=== PATIENT | female | born 1975 | race Caucasian/White ===

== ENCOUNTER 2016-07-01 13:03 | Emergency (ER) | payer OTHER ==
[~2016-07-01] VITALS: Ht 162.6 cm; Wt 145.1 kg
[~2016-07-01 13:03] MED LIST: COLACE100 MG; FENOFIBRATE200 MG PO; HYDROXYZINE50 MG PO; IRON TABLETS325 MG PO; LASIX40 MG PO; NECON; NEORAL25 M1; PRE-NATAL1 TA1 PO; TRAZADONE HYDR100 MG PO; VISTARIL50 MG/ML PO; ZOLOFT100 M1 PO; ZOLOFT100 MG PO; ZOLOFT50 M1 PO
[2016-07-01 13:53] VITALS: BP 120/90
--- NOTE | 2016-07-01 15:35 | NUR ---
PT TO BED 7 AT THIS TIME
--- NOTE | 2016-07-01 15:41 | NUR ---
40/F TO ED WITH C/O HEADACHE AND SINUS PAIN X1 WEEK. PT STATES PAIN IS 10/10. IBUPROFEN IS NOT HELPING WITH PAIN. DENIES N/V/D. LUNGS CLEAR BILAT. HR EVEN AND REGULAR. AAOX4. VSS. NO SIGNS OF DISTRESS.
[2016-07-01] MEDS ORDERED: KETOROLAC 60 MG/2 ML VIAL IM ONE (17:00)
--- NOTE | 2016-07-01 17:01 | NUR ---
Patient appears to be resting comfortably in bed. Vital Signs within normal limits. Respirations even and unlabored.
[2016-07-01 20:15] VITALS: BP 135/65
--- NOTE | 2016-07-01 20:16 | NUR ---
Patient discharged with v/s stable. Written and verbal after care instructions given and explained. Patient alert, oriented and verbalized understanding of instructions. Ambulatory with steady gait. All questions addressed prior to discharge. ID band removed. Patient advised to follow up with PMD. Rx of DOXYCYCLINE 100MG BID, SUDAFED 12HRS 120MG BID, MOTRIN 800MG TID, NORCO 5MG-325MG Q4HRS PRN given. Patient educated on indication of medication including possible reaction and side effects. Opportunity to ask questions provided and answered.
[2016-12-01] MEDS ORDERED: NEURONTIN300 MG PO (13:12)
== END 2016-07-01 20:16 | disposition home or self-care (01) ==
LOC: MED 13:03
DX: J32.9 Chronic sinusitis, unspecified (principal); F32.9 Major depressive disorder, single episode, unspecified; Z88.0 Allergy status to penicillin; Z90.710 Acquired absence of both cervix and uterus; Z90.89 Acquired absence of other organs
CPT/HCPCS: 81002; 96372; 99283; J1885

== ENCOUNTER 2016-08-13 11:26 | Emergency (ER) | payer OTHER ==
[~2016-08-13] VITALS: Ht 162.6 cm; Wt 145.1 kg
[~2016-08-13 11:26] MED LIST changes: -COLACE100 MG; -FENOFIBRATE200 MG PO; -HYDROXYZINE50 MG PO; -IRON TABLETS325 MG PO; -LASIX40 MG PO; -NECON; -NEORAL25 M1; -PRE-NATAL1 TA1 PO; +SERT100T PO; -TRAZADONE HYDR100 MG PO; -VISTARIL50 MG/ML PO; -ZOLOFT100 M1 PO; -ZOLOFT100 MG PO; -ZOLOFT50 M1 PO; +[UNRECOGNIZED DRUG - CODE] PO
[2016-08-13 11:42] VITALS: BP 141/80
--- NOTE | 2016-08-13 11:42 | NUR ---
PT BIBA ON 5150 FOR SUICIDAL IDEATION AND SELF-INFLICTED LACERATIONS TO JUSTIN FOREARMS. HX DEPRESSION AND ANXIETY; DENIES N/V/D; SKIN IS PINK/WARM/DRY; AAOX4 WITH EVEN AND STEADY GAIT; LUNGS CLEAR BL; HR EVEN AND REGULAR; PT DENIES ANY FEVER, CP, SOB, OR COUGH AT THIS TIME; PATIENT STATES PAIN OF 0/10 AT THIS TIME; VSS; PATIENT POSITIONED FOR COMFORT; HOB ELEVATED; BEDRAILS UP X2; BED DOWN. ER MD MADE AWARE OF PT STATUS.
[2016-08-13 12:18] LABS: BASOPHILS # (AUTO) 0.1 K/uL (0.00-0.22); BASOPHILS % (AUTO) 1.4 % (0.0-2.0); EOSINOPHILS # (AUTO) 0.3 K/uL (0-0.4); HEMATOCRIT 40.2 % (36-48); HEMOGLOBIN 13.5 g/dL (12.0-16.0); LYMPHOCYTES # (AUTO) 1.9 K/uL (2.5-16.5); LYMPHOCYTES % (AUTO) 32.1 % (20.5-51.1); MEAN CORPUSCULAR HEMOGLOBIN 30 pg (27-31); MEAN CORPUSCULAR HGB CONC 34 g/dL (33-37); MEAN CORPUSCULAR VOLUME 90 fL (80-94); MONOCYTES # (AUTO) 0.4 K/uL (0.8-1.0); MONOCYTES % (AUTO) 6.2 % (1.7-9.3); NEUTROPHILS # (AUTO) 3.1 K/uL (1.8-7.7); NEUTROPHILS % (AUTO) 55.3 % (42.2-75.2); PLATELET COUNT (AUTO) 212 K/uL (140-450); RED BLOOD CELL COUNT(AUTO) 4.49 MIL/uL (4.20-5.40); RED CELL DISTRIBUTION WIDTH 12.5 % (11.6-13.7); WHITE BLOOD COUNT (AUTO) 5.8 K/uL (4.8-10.8)
--- NOTE | 2016-08-13 12:25 | NUR ---
FERNANDO PT AMBULATES TO THE RESTROOM FOR URINE SAMPLE ASSISSTED BY KAYLIE GONZALES
[2016-08-13 12:35] LABS: ANION GAP 11.4 (8-16); CALCIUM 8.9 mg/dL (8.5-10.1); CARBON DIOXIDE 27.5 mmol/L (21-32); CHLORIDE 107 mmol/L (98-107); CREATININE 0.7 mg/dL (0.6-1.3); GFR ARICAN-AMERICAN 117 mL/min (>90); GFR NON ARICAN-AMERICAN 97 mL/min (>90); GLUCOSE 90 mg/dL (74-106); POTASSIUM 3.9 mmol/L (3.5-5.1); SODIUM SERUM 142 mmol/L (136-145); UREA NITROGEN, BLOOD 9 mg/dL (7-18)
[2016-08-13 12:42] LABS: ALANINE AMINOTRANSFERASE 26 U/L (12-78); ALBUMIN 3.9 g/dL (3.4-5.0); ALCOHOL, BLOOD < 3 mg/dL (<3); ALKALINE PHOSPHATASE 57 U/L (46-116); ASPARTATE AMINOTRANSFERASE 24 U/L (15-37); CREATINE KINASE, TOTAL 70 U/L (26-192); TOTAL BILIRUBIN 0.4 mg/dL (0.0-1.0); TOTAL PROTEIN, SERUM 7.3 g/dL (6.4-8.2)
[2016-08-13 12:46] LABS: ACETAMINOPHEN < 0.5 ug/ml (10-30); SALICYLATE < 2.8 mg/dL (2.8-20.0)
[2016-08-13 12:51] LABS: BILIRUBIN,URINE NEGATIVE (NEGATIVE); BLOOD, URINE NEGATIVE (NEGATIVE); COLOR,URINE YELLOW (YELLOW); LEUKOCYTE ESTERASE ,URINE NEGATIVE (NEGATIVE); NITRITE, URINE NEGATIVE (NEGATIVE); PROTEIN,URINE NEGATIVE (NEGATIVE); UGLUCOSE NEGATIVE (NEGATIVE); UROBILINOGEN,URINE 0.2 EU/dL (0.2 - 1)
[2016-08-13 12:53] LABS: APPEARANCE,URINE CLEAR (CLEAR)
--- NOTE | 2016-08-13 12:54 | NUR ---
AAO COOPERATIVE PT REQUESTED DAUGHTER SULMA THAT SHE GET ALONG TO BE AT HER BEDSIDE. CHAIR PROVIDED, PT TALKING CALMLY WITH DAUGHTER, NO SIGNS OF HARMING SELF AT THIS TIME, WILL CONTINUE TO MONITOR
[2016-08-13 13:00] LABS: AMPHETAMINE, URINE NEG. ng/ml (NEG <=1000); BARBITURATE, URINE NEG. ng/ml (NEG <=200); BENZODIAZEPINE, URINE NEG. ng/mL (NEG <=200); CANNABINOID, URINE NEG. ng/mL (NEG <=50); COCAINE, URINE NEG. ng/mL (NEG <=300); OPIATE, URINE NEG. ng/mL (NEG <=2000); PHENCYCLIDINE SCREEN,URINE NEG. ng/mL (NEG <=25)
[2016-08-13 13:02] LABS: BACTERIA,URINE OCCASSIONAL /HPF (None Seen); RBC,URINE 0-5 (RARE) /HPF (0-5); WBC,URINE 0-5 (RARE) /HPF (0-5)
--- NOTE | 2016-08-13 14:59 | NUR ---
TALK TO RACHEL DEXTER INTAKE FOR POSSIBLE ADMIT, AAO COOPERATIVE TALKING SEASONAL GREENERY BUNDLER WELL, PT CALLING FAM[facility] FOR TAKING CARE OF HER 13 YEAR OLD DAUGHTER
[2016-08-13] MEDS ORDERED: ACETAMINOPHEN EXTRA STRENGTH 500 MG TAB PO ONE (15:00)
--- NOTE | 2016-08-13 15:33 | NUR ---
AAO PT STILL TRYING TO MAKE PHONE CALL TO ARRANGE FOR CUSTODY OF 13 YEAR OLD DAUGHTER, KAYLIE RAMÍREZ AT BEDSIDE
--- NOTE | 2016-08-13 16:00 | NUR ---
PER PT HER MOTHER SHIKHA STEVENS [id number] [place] [address] WILL TAKE CARE OF HER DAUGHTER ASTRID STEVENS AT THIS TIME
--- NOTE | 2016-08-13 16:08 | NUR ---
PER PATIENT,HER MOTHER WILL TAKE CARE OF HER 13 YR.OLD AT HOME.
[2016-08-13 16:26] VITALS: BP 121/71
--- NOTE | 2016-08-13 16:26 | NUR ---
Patient to be transferred to [facility]. Is being transferred due to NEED OF HIGHER LEVEL OF CARE. Receiving facility has accepting physician and available space. ER physician has signed transfer form. Patient or responsible green party has agreed to transfer and signed form. Patient belongings inventoried and sent with patient. Copy of nursing notes, lab reports, EKG, Physicians Orders and X-rays to be sent with patient. Report called to INTAKE NURSE at receiving facility. ambulance service TAKE THE PT VIA GURNEY BY PARAMEDICS
== END 2016-08-13 16:26 ==
LOC: MED 11:26
DX: S51.812A Laceration without foreign body of left forearm, initial encounter (principal); S51.811A Laceration without foreign body of right forearm, initial encounter; F32.9 Major depressive disorder, single episode, unspecified; Z88.0 Allergy status to penicillin; X78.1XXA Intentional self-harm by knife, initial encounter; Y93.89 Activity, other specified; Y92.89 Other specified places as the place of occurrence of the external cause; Y99.8 Other external cause status
CPT/HCPCS: 36415; 80053; 80305; 81001; 81025; 82550; 84484; 85025; 99285; G0480; G0482

== ENCOUNTER 2016-12-01 12:52 | Emergency (ER) | payer OTHER ==
[~2016-12-01] VITALS: Ht 162.6 cm; Wt 145.1 kg
[2016-12-01] MEDS ORDERED: NACL 0.9% 1,000 ML IV SCH (12:59)
[2016-12-01] MEDS ORDERED: ONDANSETRON 4 MG/2 ML VIAL IVP ONE (13:00)
[2016-12-01] MEDS ORDERED: FAMOTIDINE 20 MG/2 ML VIAL IVP ONE (13:00)
--- NOTE | 2016-12-01 13:00 | NUR ---
Patient BIBA BLS, transferred to bed 4. RN evaluating patient at bedside.
[2016-12-01] MEDS ORDERED: NACL 0.9% 1,000 ML IV ONE (13:03)
[2016-12-01] MEDS ORDERED: MULTIVITAMIN-12 10 ML, THIAMINE 100 MG, MAGNESIUM SULFATE 50% 2,000 MG, FOLIC ACID 5 MG... IV ONE ×5 (13:03)
[2016-12-01 13:06] VITALS: BP 135/77
--- NOTE | 2016-12-01 13:10 | NUR ---
PATIENT PRESENTS TO ED WITH PATIENT WOKE UP WITH SYMP. AFTER DRINKING 10 TALL CANS OF BEER LAST NIGHT. HX: HTN,DEPRESSION,HIGH CHOL.,PARTIAL HYSTERECTOMY . DENIES N/V/; SKIN IS PINK/WARM/DRY; AAOX4 WITH EVEN AND STEADY GAIT; LUNGS CLEAR BL; HR EVEN AND REGULAR; PT DENIES ANY FEVER, CP, SOB, OR COUGH AT THIS TIME; PATIENT STATES PAIN OF 5/10 AT THIS TIME; VSS; PATIENT POSITIONED FOR COMFORT; HOB ELEVATED; BEDRAILS UP X2; BED DOWN. ER MD MADE AWARE OF PT STATUS.
[2016-12-01] MEDS ORDERED: GABA300C PO (13:12)
[2016-12-01] MEDS ORDERED: MAGNESIUM SULFATE IV SCH ×6 (13:20→13:22)
[2016-12-01] MEDS ORDERED: THIAMINE IV SCH ×6 (13:20→13:22)
[2016-12-01] MEDS ORDERED: FOLIC ACID IV SCH ×6 (13:20→13:22)
[2016-12-01] MEDS ORDERED: NACL 0.9% IV SCH (13:20)
[2016-12-01 13:22] LABS: BASOPHILS # (AUTO) 0.3 K/uL (0.00-0.22); BASOPHILS % (AUTO) 3.9 % (0.0-2.0); EOSINOPHILS # (AUTO) 0.1 K/uL (0-0.4); EOSINOPHILS % (AUTO) 1.8 % (0.0-4.0); HEMATOCRIT 43.3 % (36-48); HEMOGLOBIN 14.4 g/dL (12.0-16.0); LYMPHOCYTES # (AUTO) 1.5 K/uL (2.5-16.5); LYMPHOCYTES % (AUTO) 18.8 % (20.5-51.1); MEAN CORPUSCULAR HEMOGLOBIN 30 pg (27-31); MEAN CORPUSCULAR HGB CONC 33 g/dL (33-37); MEAN CORPUSCULAR VOLUME 89 fL (80-94); MONOCYTES # (AUTO) 0.3 K/uL (0.8-1.0); MONOCYTES % (AUTO) 3.7 % (1.7-9.3); NEUTROPHILS # (AUTO) 5.8 K/uL (1.8-7.7); NEUTROPHILS % (AUTO) 71.8 % (42.2-75.2); PLATELET COUNT (AUTO) 193 K/uL (140-450); RED BLOOD CELL COUNT(AUTO) 4.85 MIL/uL (4.20-5.40); RED CELL DISTRIBUTION WIDTH 12.8 % (11.6-13.7)
[2016-12-01] MEDS ORDERED: [UNRECOGNIZED DRUG - OTHER] IV SCH ×5 (13:22)
[2016-12-01 13:45] LABS: ANION GAP 17.5 (8-16); CALCIUM 9.7 mg/dL (8.5-10.1); CARBON DIOXIDE 24.4 mmol/L (21-32); CREATININE 0.9 mg/dL (0.6-1.3); POTASSIUM 3.9 mmol/L (3.5-5.1)
[2016-12-01 13:46] LABS: PARTIAL THROMBOPLASTIN TIME 26.5 secs (22-35.6); PROTHROMBIN TIME 10.4 secs (10.8-13.4)
[2016-12-01 13:51] LABS: ALBUMIN 4.3 g/dL (3.4-5.0); TOTAL BILIRUBIN 0.6 mg/dL (0.0-1.0); TOTAL PROTEIN, SERUM 8.1 g/dL (6.4-8.2)
--- NOTE | 2016-12-01 14:44 | NUR ---
AAO PT ASSISTED TO THE RESTROOM FOR URINE SAMPLE
[2016-12-01 15:10] LABS: APPEARANCE,URINE CLEAR (CLEAR); BILIRUBIN,URINE NEGATIVE (NEGATIVE); BLOOD, URINE NEGATIVE (NEGATIVE); COLOR,URINE YELLOW (YELLOW); LEUKOCYTE ESTERASE ,URINE NEGATIVE (NEGATIVE); NITRITE, URINE NEGATIVE (NEGATIVE); PROTEIN,URINE NEGATIVE (NEGATIVE); UGLUCOSE NEGATIVE (NEGATIVE); UROBILINOGEN,URINE 0.2 EU/dL (0.2 - 1)
[2016-12-01 15:17] LABS: AMPHETAMINE, URINE NEG. ng/ml (NEG <=1000); BARBITURATE, URINE NEG. ng/ml (NEG <=200); BENZODIAZEPINE, URINE NEG. ng/mL (NEG <=200); CANNABINOID, URINE NEG. ng/mL (NEG <=50); COCAINE, URINE NEG. ng/mL (NEG <=300); OPIATE, URINE NEG. ng/mL (NEG <=2000); PHENCYCLIDINE SCREEN,URINE NEG. ng/mL (NEG <=25)
[2016-12-01] MEDS ORDERED: LIDOCAINE VISCOUS 2% 20 ML UDC PO ONE (15:35)
[2016-12-01] MEDS ORDERED: ALUMINUM HYD/MAG/SIMETHICONE 30 ML UDC PO ONE (15:35)
[2016-12-01] MEDS ORDERED: DICYCLOMINE HCL LIQUID 10 MG/5 ML UDC PO ONE (15:35)
[2016-12-01 16:03] VITALS: BP 118/76
--- NOTE | 2016-12-01 16:03 | NUR ---
Patient discharged with v/s stable. Written and verbal after care instructions given and explained. Patient alert, oriented and verbalized understanding of instructions. Ambulatory with steady gait. All questions addressed prior to discharge. ID band removed. Patient advised to follow up with PMD. Rx of BENTYL, RANITIDINE given. Patient educated on indication of medication including possible reaction and side effects. Opportunity to ask questions provided and answered.
== END 2016-12-01 16:03 | disposition home or self-care (01) ==
LOC: MED 12:52
DX: K29.20 Alcoholic gastritis without bleeding (principal); F10.10 Alcohol abuse, uncomplicated; F32.9 Major depressive disorder, single episode, unspecified; Z90.710 Acquired absence of both cervix and uterus; Z88.0 Allergy status to penicillin
CPT/HCPCS: 36415; 71010; 80053; 80305; 81003; 81025; 82150; 83690; 85025; 85610; 85730; 96365; 96366; 96375; 99285; A9153; G0482; J2405; J3411; J3475; J3490; J7030; Q0092

== ENCOUNTER 2017-06-11 13:09 | Emergency (ER) | payer OTHER ==
[~2017-06-11] VITALS: Ht 162.6 cm; Wt 146.1 kg
[~2017-06-11 13:09] MED LIST changes: +GABA300C PO; -[UNRECOGNIZED DRUG - CODE] PO
[2017-06-11 13:51] VITALS: BP 134/79
--- NOTE | 2017-06-11 14:53 | NUR ---
PATIENT TO BED 2 AT THIS TIME.
--- NOTE | 2017-06-11 15:11 | NUR ---
PATIENT PRESENTS TO ED WITH C/O CONGESTION AND COUGH X 1 WEEK . PT STATES SHE HAS CP. ALSO C/O SOB O2 SAT 0F 99% AT ROOM AIR;FEELS NAUSEOUS BUT DENIES VOMITTING; SKIN IS PINK/WARM/DRY; AAOX4 WITH EVEN AND STEADY GAIT; HR EVEN AND REGULAR; PATIENT STATES PAIN OF 7/10 AT THIS TIME;PATIENT POSITIONED FOR COMFORT; HOB ELEVATED; BEDRAILS UP X2; BED DOWN. ALL MONITORS IN PLACED;ER MD MADE AWARE OF PT STATUS.
[2017-06-11] MEDS ORDERED: IPRATROPIUM 0.02% 0.5 MG/2.5 ML NEBU INH ONE (15:30)
[2017-06-11] MEDS ORDERED: predniSONE 20 MG TAB PO ONE (15:30)
[2017-06-11] MEDS ORDERED: ALBUTEROL 0.083% 2.5 MG/3 ML NEBU INH ONE (15:30)
--- NOTE | 2017-06-11 16:17 | NUR ---
DR QUILES AT BEDSIDE.
[2017-06-11 16:30] VITALS: BP 132/96
--- NOTE | 2017-06-11 16:30 | NUR ---
Patient discharged with v/s stable. Written and verbal after care instructions given and explained. Patient alert, oriented and verbalized understanding of instructions. Ambulatory with steady gait. All questions addressed prior to discharge. ID band removed. Patient advised to follow up with PMD. Rx of ALBUTEROL,PREDNISONE AND PROMETHAZINE given. Patient educated on indication of medication including possible reaction and side effects. Opportunity to ask questions provided and answered.
== END 2017-06-11 16:30 | disposition home or self-care (01) ==
LOC: MED 13:09
DX: J20.9 Acute bronchitis, unspecified (principal); I10 Essential (primary) hypertension; Z90.89 Acquired absence of other organs; E78.00 Pure hypercholesterolemia, unspecified; Z88.0 Allergy status to penicillin
CPT/HCPCS: 71045; 94640; 99283; J7512; J7613; J7644

== ENCOUNTER 2017-10-25 10:19 | Emergency (ER) | payer OTHER ==
[~2017-10-25] VITALS: Ht 162.6 cm; Wt 145.1 kg
[2017-10-25 10:25] VITALS: BP 123/81
--- NOTE | 2017-10-25 10:32 | NUR ---
Patient ambulated to bed 9. RN evaluating patient at bedside.
--- NOTE | 2017-10-25 10:40 | NUR ---
42 yo female bib self for abdominal pain and vaginal itching x 4 days and suprapubic pain. pt a&o x 4. gcs 15. cms intact. denies n/v/d/fever/chills. er md polk notified. pt needs met. safety precautions in place. will continue to monitor.
[2017-10-25] MEDS ORDERED: HYDROcodone/APAP 5/325 MG 1 TAB TAB PO ONE (10:45)
--- NOTE | 2017-10-25 13:01 | NUR ---
Dr. Burdick evaluating patient at bedside.
[2017-10-25 13:11] VITALS: BP 119/78
--- NOTE | 2017-10-25 13:11 | NUR ---
Patient discharged with v/s stable. Written and verbal after care instructions given and explained. Patient alert, oriented and verbalized understanding of instructions. Ambulatory with steady gait. All questions addressed prior to discharge. ID band removed. Patient advised to follow up with PMD. Rx of Flucanazole, [place], Benadryl, Ciprofloxacin given. Patient educated on indication of medication including possible reaction and side effects. Opportunity to ask questions provided and answered.
[2017-10-25 13:14] LABS: APPEARANCE,URINE TURBID (CLEAR); BILIRUBIN,URINE NEGATIVE (NEGATIVE); BLOOD, URINE 3+ (NEGATIVE); COLOR,URINE YELLOW (YELLOW); LEUKOCYTE ESTERASE ,URINE 2+ (NEGATIVE); NITRITE, URINE POSITIVE (NEGATIVE); PH,URINE 6.5 (5.0-9.0); UGLUCOSE NEGATIVE (NEGATIVE)
[2017-10-25 13:27] LABS: RBC,URINE 11-20 (MOD) /HPF (0-5); WBC,URINE TOO MANY TO COUNT /HPF (0-5)
--- NOTE | 2017-10-27 18:57 | NUR ---
ADDENDUM: URINE CULTURE RESULTS, E.COLI. REVIEWED BY DR. MCDANIEL. NO FARTHER TX. NEEDED. PATIENT DISCHARGED WITH CIPRO.
== END 2017-10-25 13:11 | disposition home or self-care (01) ==
LOC: MED 10:19
DX: N39.0 Urinary tract infection, site not specified (principal); I10 Essential (primary) hypertension; F32.9 Major depressive disorder, single episode, unspecified; E78.00 Pure hypercholesterolemia, unspecified; Z79.899 Other long term (current) drug therapy; Z88.0 Allergy status to penicillin
CPT/HCPCS: 81001; 81025; 87086; 87186; 99284

== ENCOUNTER 2017-11-15 10:38 | Emergency (ER) | payer OTHER ==
[~2017-11-15] VITALS: Ht 165.1 cm; Wt 149.7 kg
[2017-11-15 10:40] VITALS: BP 131/92
--- NOTE | 2017-11-15 10:44 | NUR ---
PATIENT TO ER BED 2 VIA EMS
--- NOTE | 2017-11-15 10:50 | NUR ---
PATIENT BHUPINDER WITH COMPLAINTS OF LOWER ABDOMINAL PAIN RADIATING TO LOWER BACK X 1 MONTH. [facility] INFORMED PATIENT HAS A HX OF UTI AND PATIENT BELIEVES IT MAY BE RECURRING. PATIENT ASKED TO PROVIDE URINE SAMPLE. ASSISTED TO BATHROOM, GAIT UNSTEADY. SKIN IS PINK/WARM/DRY; AAOX4; LUNGS CLEAR BL; HR EVEN AND REGULAR; PT DENIES ANY FEVER, CP, SOB, OR COUGH AT THIS TIME; PATIENT STATES PAIN OF 10/10 AT THIS TIME; VSS; PATIENT POSITIONED FOR COMFORT; HOB ELEVATED; BEDRAILS UP X1; BED DOWN. ER MD MADE AWARE OF PT STATUS. Addendum: 11/15/17 at 1509 by LUVHAN PATIENT ALSO NOTED TO HAVE SEVERAL CUTS OVER HER LEFT WRIST AND FOREARM. PATIENT STATES SHE DOES NOT REMEBER HOW THEY HAPPENED. ED MADE AWARE.
--- NOTE | 2017-11-15 11:01 | NUR ---
UNABLE TO PROVIDE URINE SAMPLE. DR. DORAN VERBAL ORDER STRAIGHT CATH.
--- NOTE | 2017-11-15 11:50 | NUR ---
Patient discharged with v/s stable. Written and verbal after care instructions given and explained. Patient verbalized understanding. Ambulatory with steady gait. All questions addressed prior to discharge. Advised to follow up with PMD.
[2017-11-15 11:53] VITALS: BP 131/92
--- NOTE | 2017-11-15 15:11 | NUR ---
PATIENT DAUGHTER BACK WITH PATIENT. WANTS MOTHER REEVALUATED FOR POSSIBLE MEDICATION REACTION. ED MD NOTIFIED.
== END 2017-11-15 11:50 | disposition home or self-care (01) ==
LOC: MED 10:38
DX: R33.9 Retention of urine, unspecified (principal); I10 Essential (primary) hypertension; Z88.0 Allergy status to penicillin; Z79.899 Other long term (current) drug therapy
CPT/HCPCS: 51701; 81002; 81025; 99284; C1758

== ENCOUNTER 2017-11-15 12:06 | Emergency (ER) | payer OTHER ==
--- NOTE | 2017-11-15 12:15 | NUR ---
PATIENT LWBS.ERMD AWARE
== END 2017-11-15 12:15 | disposition left against medical advice (07) ==
LOC: MED 12:06
DX: R42 Dizziness and giddiness (principal); I10 Essential (primary) hypertension; Z53.21 Procedure and treatment not carried out due to patient leaving prior to being seen by health care provider; Z88.0 Allergy status to penicillin

== ENCOUNTER 2018-05-31 15:33 | Emergency (ER) | payer OTHER ==
[~2018-05-31] VITALS: Ht 162.6 cm; Wt 144.2 kg
[2018-05-31 16:10] VITALS: BP 129/98
--- NOTE | 2018-05-31 16:15 | NUR ---
PATIENT TO LOBBY WITH FAMILY. NO AVAIL. BED AT THIS TIME. NO DISTRESS
--- NOTE | 2018-05-31 17:13 | NUR ---
PT RETURNED FROM US AND TAKEN TO BED 6
--- NOTE | 2018-05-31 17:19 | NUR ---
Patient being evaluated by physician at bedside.
--- NOTE | 2018-05-31 17:30 | NUR ---
PER PATIENT, FELT 2 BUMPS INSIDE HER VAGINA X 2 DAYS AND THIS MORNING STARTS BLEEDING.PATIENT STATES PAIN OF 10/10 AT THIS TIME; VSS; PATIENT POSITIONED FOR COMFORT; HOB ELEVATED; BEDRAILS UP X2; BED DOWN. ER MD MADE AWARE OF PT STATUS.
[2018-05-31 18:11] VITALS: BP 129/98
--- NOTE | 2018-05-31 18:12 | NUR ---
Patient discharged with v/s stable. Written and verbal after care instructions given and explained. Patient alert, oriented and verbalized understanding of instructions. Ambulatory with steady gait. All questions addressed prior to discharge. ID band removed. Patient advised to follow up with PMD. Rx of hydrocortisone, motrin, tramadol given. Patient educated on indication of medication including possible reaction and side effects. Opportunity to ask questions provided and answered.
== END 2018-05-31 18:12 | disposition home or self-care (01) ==
LOC: MED 15:33
DX: N89.8 Other specified noninflammatory disorders of vagina (principal); R31.9 Hematuria, unspecified; I10 Essential (primary) hypertension; Z90.710 Acquired absence of both cervix and uterus; Z79.899 Other long term (current) drug therapy; Z88.0 Allergy status to penicillin
CPT/HCPCS: 76856; 99284

== ENCOUNTER 2018-08-22 12:21 | Emergency (ER) | payer OTHER ==
[~2018-08-22] VITALS: Ht 162.6 cm; Wt 145.1 kg
[2018-08-22 12:27] VITALS: BP 151/98
--- NOTE | 2018-08-22 15:05 | NUR ---
1505---1ST CALL, PATIENT LEFT WITHOUT BEING SEEN BY DR. POWERS. NO FURTHER CARE PROVIDED FOR PATIENT. 1510---2ND CALL, NO ANSWER 1520---3RD CALL, NO ANSWER.
== END 2018-08-22 15:05 | disposition left against medical advice (07) ==
LOC: MED 12:21
DX: J34.89 Other specified disorders of nose and nasal sinuses (principal); Z53.21 Procedure and treatment not carried out due to patient leaving prior to being seen by health care provider

== ENCOUNTER 2019-01-03 19:07 | Emergency (ER) | payer OTHER ==
[~2019-01-03] VITALS: Ht 162.6 cm; Wt 145.1 kg
[2019-01-03 19:16] VITALS: BP 110/82
[2019-01-03] MEDS: KETOROLAC 60 MG/2 ML VIAL IM ONE (20:50)
[2019-01-03 21:23] LABS: APPEARANCE,URINE HAZY (CLEAR); BILIRUBIN,URINE 1+ (NEGATIVE); BLOOD, URINE NEGATIVE (NEGATIVE); COLOR,URINE YELLOW (YELLOW); LEUKOCYTE ESTERASE ,URINE TRACE (NEGATIVE); NITRITE, URINE NEGATIVE (NEGATIVE); UGLUCOSE NEGATIVE (NEGATIVE)
[2019-01-03 21:34] LABS: RBC,URINE 0-5 /HPF (0-5); WBC,URINE 0-5 /HPF (0-5)
[2019-01-03 23:16] VITALS: BP 118/74
== END 2019-01-03 23:16 | disposition home or self-care (01) ==
LOC: MED 19:07
DX: N83.201 Unspecified ovarian cyst, right side (principal); I10 Essential (primary) hypertension; Z79.899 Other long term (current) drug therapy
CPT/HCPCS: 76856; 81001; 81025; 96372; 99284; J1885; Q0092

== ENCOUNTER 2019-01-15 18:54 | Emergency (ER) | payer OTHER ==
[~2019-01-15] VITALS: Ht 162.6 cm; Wt 149.2 kg
[2019-01-15 19:23] VITALS: BP 120/90
--- NOTE | 2019-01-15 19:27 | NUR ---
TO LOBBY A/W BED AMBULATORY
[2019-01-15 19:47] LABS: APPEARANCE,URINE CLEAR (CLEAR); BILIRUBIN,URINE NEGATIVE (NEGATIVE); BLOOD, URINE NEGATIVE (NEGATIVE); COLOR,URINE YELLOW (YELLOW); LEUKOCYTE ESTERASE ,URINE NEGATIVE (NEGATIVE); NITRITE, URINE NEGATIVE (NEGATIVE); UGLUCOSE NEGATIVE (NEGATIVE)
--- NOTE | 2019-01-15 23:36 | NUR ---
PT AMBULATED TO BED 02 WITH STEADY GAIT.
[2019-01-16] MEDS ORDERED: ONDANSETRON 4 MG ODT PO ONE (00:05)
[2019-01-16] MEDS ORDERED: MORPHINE SULFATE 4 MG/ML SYR IM ONE (00:05)
[2019-01-16] MEDS ORDERED: KETOROLAC 30 MG/ML VIAL IM ONE (00:05)
[2019-01-16 00:35] LABS: BASOPHILS % (AUTO) 0.3 % (0.0-2.0); EOSINOPHILS # (AUTO) 0.4 K/uL (0-0.4); EOSINOPHILS % (AUTO) 5.8 % (0.0-4.0); HEMATOCRIT 41.7 % (36-48); HEMOGLOBIN 13.8 g/dL (12.0-16.0); LYMPHOCYTES # (AUTO) 2.8 K/uL (2.5-16.5); LYMPHOCYTES % (AUTO) 45.4 % (20.5-51.1); MEAN CORPUSCULAR HEMOGLOBIN 30 pg (27-31); MEAN CORPUSCULAR HGB CONC 33 g/dL (33-37); MEAN CORPUSCULAR VOLUME 91.9 fL (80-94); MONOCYTES # (AUTO) 0.4 K/uL (0.8-1.0); MONOCYTES % (AUTO) 6.7 % (1.7-9.3); NEUTROPHILS # (AUTO) 2.6 K/uL (1.8-7.7); NEUTROPHILS % (AUTO) 41.8 % (42.2-75.2); PLATELET COUNT (AUTO) 201 K/uL (140-450); RED BLOOD CELL COUNT(AUTO) 4.54 MIL/uL (4.20-5.40); RED CELL DISTRIBUTION WIDTH 13.7 % (11.6-13.7); WHITE BLOOD COUNT (AUTO) 6.1 K/uL (4.8-10.8)
[2019-01-16 01:00] LABS: ANION GAP 16.4 (8-16); CARBON DIOXIDE 20.3 mmol/L (21-32); CREATININE 0.8 mg/dL (0.6-1.3); POTASSIUM 3.7 mmol/L (3.5-5.1)
[2019-01-16 01:05] LABS: ALBUMIN 4.4 g/dL (3.4-5.0); TOTAL BILIRUBIN 0.6 mg/dL (0.0-1.0)
--- NOTE | 2019-01-16 02:01 | NUR ---
43 Y/O FEMALE C/O VAGINAL THROBBING PAIN, PAINFUL URINATION, FOUL SMELL ON URINE, FOR 2 WEEKS. PMH: ARTHRITIS, DEPRESSION, ANXIETY, AND HIGH CHOLESTEROL NKDA
[2019-01-16] MEDS ORDERED: cefTRIAXone 1,000 MG in LIDOCAINE MPF 1% - 5 mL VIAL 2.1 ML IM ONE (02:10)
--- NOTE | 2019-01-16 03:12 | NUR ---
Patient discharged with v/s stable. Written and verbal after care instructions given and explained. Patient alert, oriented and verbalized understanding of instructions. Ambulatory with steady gait. All questions addressed prior to discharge. ID band removed. Patient advised to follow up with PMD. Rx of KEFLEX 500MG given. Patient educated on indication of medication including possible reaction and side effects. Opportunity to ask questions provided and answered.
[2019-01-16 03:13] VITALS: BP 120/90
== END 2019-01-16 03:11 | disposition home or self-care (01) ==
LOC: MED 18:54
DX: R10.9 Unspecified abdominal pain (principal); I10 Essential (primary) hypertension; Z79.899 Other long term (current) drug therapy
CPT/HCPCS: 36415; 74176; 80053; 81003; 85025; 96372; 99284; J0696; J1885; J2001; J2270; Q0162

== ENCOUNTER 2019-04-14 12:58 | Emergency (ER) | payer OTHER ==
[~2019-04-14] VITALS: Ht 162.6 cm; Wt 149.7 kg
[2019-04-14 13:13] VITALS: BP 160/107
[2019-04-14 14:39] LABS: BASOPHILS % (AUTO) 0.1 % (0.0-2.0); EOSINOPHILS # (AUTO) 0.4 K/uL (0-0.4); EOSINOPHILS % (AUTO) 6.2 % (0.0-4.0); HEMATOCRIT 40.7 % (36-48); HEMOGLOBIN 13.5 g/dL (12.0-16.0); LYMPHOCYTES # (AUTO) 1.8 K/uL (2.5-16.5); LYMPHOCYTES % (AUTO) 31.2 % (20.5-51.1); MEAN CORPUSCULAR HEMOGLOBIN 31 pg (27-31); MEAN CORPUSCULAR HGB CONC 33 g/dL (33-37); MEAN CORPUSCULAR VOLUME 92.9 fL (80-94); MONOCYTES # (AUTO) 0.5 K/uL (0.8-1.0); NEUTROPHILS # (AUTO) 3.1 K/uL (1.8-7.7); NEUTROPHILS % (AUTO) 53.5 % (42.2-75.2); PLATELET COUNT (AUTO) 204 K/uL (140-450); RED BLOOD CELL COUNT(AUTO) 4.38 MIL/uL (4.20-5.40); RED CELL DISTRIBUTION WIDTH 13.6 % (11.6-13.7); WHITE BLOOD COUNT (AUTO) 5.7 K/uL (4.8-10.8)
[2019-04-14] MEDS: ONDANSETRON 4 MG/2 ML VIAL IVP ONE (14:46)
[2019-04-14] MEDS: NACL 0.9% 1,000 ML IV ONE (14:46)
[2019-04-14 14:49] LABS: CARBON DIOXIDE 23.1 mmol/L (21-32); CREATININE 0.9 mg/dL (0.6-1.3); POTASSIUM 4.1 mmol/L (3.5-5.1)
[2019-04-14 14:55] LABS: ALBUMIN 3.9 g/dL (3.4-5.0); TOTAL BILIRUBIN 0.5 mg/dL (0.0-1.0)
[2019-04-14 15:08] LABS: APPEARANCE,URINE CLEAR (CLEAR); BILIRUBIN,URINE NEGATIVE (NEGATIVE); BLOOD, URINE NEGATIVE (NEGATIVE); LEUKOCYTE ESTERASE ,URINE NEGATIVE (NEGATIVE); NITRITE, URINE NEGATIVE (NEGATIVE); UGLUCOSE NEGATIVE (NEGATIVE)
[2019-04-14 15:09] LABS: COLOR,URINE STRAW (YELLOW)
[2019-04-14 15:13] LABS: ACETAMINOPHEN < 0.5 ug/ml (10-30); SALICYLATE < 2.8 mg/dL (2.8-20.0)
[2019-04-14 15:13] LABS: BARBITURATE, URINE NEG. ng/ml (NEG <=200); BENZODIAZEPINE, URINE NEG. ng/mL (NEG <=200); CANNABINOID, URINE NEG. ng/mL (NEG <=50); COCAINE, URINE NEG. ng/mL (NEG <=300); OPIATE, URINE NEG. ng/mL (NEG <=2000); PHENCYCLIDINE SCREEN,URINE NEG. ng/mL (NEG <=25)
[2019-04-14] MEDS: KETOROLAC 30 MG/ML VIAL IVP ONE (15:56)
[2019-04-14 16:02] VITALS: BP 119/72
== END 2019-04-14 16:02 | disposition home or self-care (01) ==
LOC: MED 12:58
DX: F41.9 Anxiety disorder, unspecified (principal); I10 Essential (primary) hypertension; R42 Dizziness and giddiness; F32.9 Major depressive disorder, single episode, unspecified; Z98.890 Other specified postprocedural states; Z79.899 Other long term (current) drug therapy
CPT/HCPCS: 36415; 71045; 80053; 80305; 81003; 82150; 83690; 85025; 93005; 96361; 96372; 96374; 99284; G0480; J1885; J2405; J7030; Q0092

== ENCOUNTER 2023-06-20 09:28 | Emergency (ER) | payer MEDICARE, OTHER ==
[~2023-06-20] VITALS: Ht 165.1 cm; Wt 157.4 kg
[2023-06-20 09:44] VITALS: BP 100/66; PULSE 77; RESP 18; TEMP 97.1; O2SAT 98
[2023-06-20 09:57] VITALS: BP 105/50; PULSE 76; RESP 17; TEMP 97.1; O2SAT 99
[2023-06-20] MEDS ORDERED: NACL 0.9% 1,000 ML IV ONE (10:15)
[2023-06-20] MEDS ORDERED: BEN10 PO (10:26)
== END 2023-06-20 11:54 | disposition home or self-care (01) ==
LOC: MED 09:28
DX: K58.0 Irritable bowel syndrome with diarrhea (principal); I10 Essential (primary) hypertension; Z79.899 Other long term (current) drug therapy
CPT/HCPCS: 96360; 99283; J7030

== ENCOUNTER 2023-06-22 22:53 | Observation (INO) | payer MEDICARE, OTHER ==
[~2023-06-22] VITALS: Ht 157.5 cm; Wt 161.0 kg
[~2023-06-22 22:53] MED LIST changes: +BEN10 PO
[2023-06-22 23:09] VITALS: BP 135/91; PULSE 89; RESP 18; TEMP 97.4; O2SAT 98
[2023-06-23 00:58] LABS: BASOPHILS % (AUTO) 0.3 % (0.0-2.0); EOSINOPHILS # (AUTO) 0.2 K/uL (0-0.4); EOSINOPHILS % (AUTO) 4.4 % (0.0-4.0); HEMOGLOBIN 13.2 g/dL (12.0-16.0); LYMPHOCYTES # (AUTO) 2.4 K/uL (2.5-16.5); LYMPHOCYTES % (AUTO) 42.9 % (20.5-51.1); MEAN CORPUSCULAR HEMOGLOBIN 31 pg (27-31); MEAN CORPUSCULAR HGB CONC 33 g/dL (33-37); MEAN CORPUSCULAR VOLUME 92.8 fL (80-94); MONOCYTES # (AUTO) 0.5 K/uL (0.8-1.0); MONOCYTES % (AUTO) 8.5 % (1.7-9.3); NEUTROPHILS # (AUTO) 2.4 K/uL (1.8-7.7); NEUTROPHILS % (AUTO) 43.9 % (42.2-75.2); PLATELET COUNT (AUTO) 193 K/uL (140-450); RED BLOOD CELL COUNT(AUTO) 4.32 MIL/uL (4.20-5.40); RED CELL DISTRIBUTION WIDTH 13.2 % (11.6-13.7); WHITE BLOOD COUNT (AUTO) 5.5 K/uL (4.8-10.8)
[2023-06-23 01:04] LABS: APPEARANCE,URINE CLEAR (CLEAR); BILIRUBIN,URINE NEGATIVE (NEGATIVE); BLOOD, URINE NEGATIVE (NEGATIVE); COLOR,URINE YELLOW (YELLOW); LEUKOCYTE ESTERASE ,URINE NEGATIVE (NEGATIVE); NITRITE, URINE NEGATIVE (NEGATIVE); PH,URINE 6.5 (5.0-9.0); PROTEIN,URINE NEGATIVE (NEGATIVE); UGLUCOSE 2+ (NEGATIVE); UROBILINOGEN,URINE 0.2 EU/dL (0.2 - 1)
[2023-06-23 01:15] LABS: ANION GAP 12.2 (8-16); CALCIUM 9.1 mg/dL (8.5-10.1); CARBON DIOXIDE 28.4 mmol/L (21-32); POTASSIUM 3.6 mmol/L (3.5-5.1)
[2023-06-23 01:20] LABS: ALBUMIN 3.3 g/dL (3.4-5.0); BILIRUBIN,DIRECT 0.1 mg/dL (0.0-0.3); TOTAL BILIRUBIN 0.2 mg/dL (0.0-1.0); TOTAL PROTEIN, SERUM 7.9 g/dL (6.4-8.2)
[2023-06-23 01:47] LABS: LACTIC ACID 4.1 mmol/L (0.4-2.0)
[2023-06-23] MEDS: NACL 0.9% 1,000 ML IV ONE ×2 (01:50→22:37)
[2023-06-23] MEDS: metroNIDAZOLE 500 MG/NS PREMIX 100 ML IV ONE (01:57)
[2023-06-23] MEDS: NACL 0.9% 2,000 ML IV ONE ×2 (02:21→03:33)
[2023-06-23] MEDS: ACETAMINOPHEN EXTRA STRENGTH 500 MG TAB PO ONE (02:44)
[2023-06-23] MEDS ORDERED: KCL 20 MEQ IN 100 mL PREMIX 200 ML IV PRN (06:35)
[2023-06-23] MEDS ORDERED: MAGNESIUM OXIDE 400 MG TAB PO PRN (06:35)
[2023-06-23] MEDS ORDERED: ACETAMINOPHEN 325 MG TAB PO PRN (06:35)
[2023-06-23] MEDS ORDERED: MAG SULF 2000 MG/WATER PREMIX 50 ML IV PRN (06:35)
[2023-06-23] MEDS ORDERED: POTASSIUM CHLORIDE 10 MEQ TABER PO PRN (06:35)
[2023-06-23] MEDS: NACL 0.9% 1,000 ML IV SCH (07:32)
[2023-06-23] MEDS: SERTRALINE 50 MG TAB PO SCH (09:06)
[2023-06-23] MEDS: DICYCLOMINE 10 MG CAP PO SCH (09:06)
[2023-06-23] MEDS: GABAPENTIN 300 MG CAP PO SCH (09:06)
[2023-06-23] MEDS: MORPHINE SULFATE 4 MG/ML SYR IVP PRN (10:22)
[2023-06-23] MEDS: ONDANSETRON 4 MG/2 ML VIAL IVP PRN (10:23)
[2023-06-23] MEDS: PANTOPRAZOLE 40 MG TABEC PO SCH (11:06)
[2023-06-23 17:01] VITALS: PULSE 73; RESP 18; O2SAT 98
[2023-06-23 17:13] VITALS: BP 107/50; PULSE 73; RESP 18; TEMP 96.8; O2SAT 97
[2023-06-23 20:00] VITALS: BP 73/37; PULSE 73; RESP 18; TEMP 97.8; O2SAT 95
[2023-06-23] MEDS: MIDODRINE 5 MG TAB PO ONE (22:35)
[2023-06-24] VITALS: BP 118/75; PULSE 66; PULSE 69; RESP 18; TEMP 97.6; O2SAT 96
[2023-06-24 04:00] VITALS: BP 101/64; PULSE 67; PULSE 78; RESP 18; TEMP 97.5; O2SAT 94
[2023-06-24 06:47] LABS: BASOPHILS % (AUTO) 0.2 % (0.0-2.0); EOSINOPHILS # (AUTO) 0.2 K/uL (0-0.4); EOSINOPHILS % (AUTO) 5.1 % (0.0-4.0); HEMATOCRIT 37.1 % (36-48); HEMOGLOBIN 12.4 g/dL (12.0-16.0); LYMPHOCYTES # (AUTO) 1.6 K/uL (2.5-16.5); LYMPHOCYTES % (AUTO) 33.4 % (20.5-51.1); MEAN CORPUSCULAR HEMOGLOBIN 31 pg (27-31); MEAN CORPUSCULAR HGB CONC 33 g/dL (33-37); MEAN CORPUSCULAR VOLUME 92.6 fL (80-94); MONOCYTES # (AUTO) 0.4 K/uL (0.8-1.0); MONOCYTES % (AUTO) 7.4 % (1.7-9.3); NEUTROPHILS # (AUTO) 2.6 K/uL (1.8-7.7); NEUTROPHILS % (AUTO) 53.9 % (42.2-75.2); PLATELET COUNT (AUTO) 176 K/uL (140-450); RED BLOOD CELL COUNT(AUTO) 4.01 MIL/uL (4.20-5.40); RED CELL DISTRIBUTION WIDTH 13.5 % (11.6-13.7); WHITE BLOOD COUNT (AUTO) 4.8 K/uL (4.8-10.8)
[2023-06-24 07:18] LABS: ALBUMIN 2.8 g/dL (3.4-5.0); ANION GAP 11.7 (8-16); CALCIUM 8.4 mg/dL (8.5-10.1); CARBON DIOXIDE 25.1 mmol/L (21-32); CREATININE 0.9 mg/dL (0.6-1.3); MAGNESIUM 1.8 mg/dL (1.8-2.4); POTASSIUM 3.8 mmol/L (3.5-5.1); TOTAL BILIRUBIN 0.2 mg/dL (0.0-1.0); TOTAL PROTEIN, SERUM 6.6 g/dL (6.4-8.2)
[2023-06-24 08:00] VITALS: BP 106/52; PULSE 68; PULSE 78; RESP 18; TEMP 97.6; O2SAT 96
[2023-06-24] MEDS ORDERED: PANTOPRAZOLE 40 MG TABEC PO SCH (09:00)
[2023-06-24] MEDS: MIDODRINE 5 MG TAB PO SCH (09:31)
[2023-06-24] MEDS: LACTOBACILLUS RHAMNOSUS GG 1 EACH CAP PO SCH (11:48)
[2023-06-24] MEDS: HYDROcodone/APAP 5/325 MG 1 TAB TAB PO PRN (11:55)
[2023-06-24 16:00] VITALS: BP 122/69; PULSE 78; RESP 18; TEMP 97.6; O2SAT 95
[2023-06-24] MEDS: MORPHINE SULFATE 2 MG/ML SYR IVP PRN (18:08)
[2023-06-24 20:00] VITALS: BP 148/91; PULSE 60; RESP 18; TEMP 97.4; O2SAT 94
[2023-06-25 04:00] VITALS: BP 148/83; PULSE 80; RESP 18; TEMP 97.4; O2SAT 95
[2023-06-25 07:17] LABS: BASOPHILS % (AUTO) 0.2 % (0.0-2.0); EOSINOPHILS # (AUTO) 0.2 K/uL (0-0.4); EOSINOPHILS % (AUTO) 3.5 % (0.0-4.0); HEMATOCRIT 37.6 % (36-48); HEMOGLOBIN 12.6 g/dL (12.0-16.0); LYMPHOCYTES # (AUTO) 1.9 K/uL (2.5-16.5); LYMPHOCYTES % (AUTO) 30.1 % (20.5-51.1); MEAN CORPUSCULAR HEMOGLOBIN 31 pg (27-31); MEAN CORPUSCULAR HGB CONC 33 g/dL (33-37); MEAN CORPUSCULAR VOLUME 92.7 fL (80-94); MONOCYTES # (AUTO) 0.4 K/uL (0.8-1.0); MONOCYTES % (AUTO) 6.5 % (1.7-9.3); NEUTROPHILS # (AUTO) 3.7 K/uL (1.8-7.7); NEUTROPHILS % (AUTO) 59.7 % (42.2-75.2); PLATELET COUNT (AUTO) 192 K/uL (140-450); RED BLOOD CELL COUNT(AUTO) 4.05 MIL/uL (4.20-5.40); WHITE BLOOD COUNT (AUTO) 6.3 K/uL (4.8-10.8)
[2023-06-25 07:21] LABS: ALBUMIN 2.9 g/dL (3.4-5.0); ANION GAP 10.6 (8-16); CALCIUM 8.7 mg/dL (8.5-10.1); CARBON DIOXIDE 25.4 mmol/L (21-32); MAGNESIUM 1.8 mg/dL (1.8-2.4); TOTAL BILIRUBIN 0.2 mg/dL (0.0-1.0)
[2023-06-25 08:40] VITALS: BP 128/68; PULSE 73; RESP 18; TEMP 97.2; O2SAT 99
[2023-06-25] MEDS ORDERED: LACTOBACILLUS RHAMNOSUS GG 1 EACH CAP PO SCH (09:00)
[2023-06-25 13:29] VITALS: BP 122/75; PULSE 82; RESP 18; TEMP 97.2; O2SAT 99
[2023-06-25 14:18] VITALS: O2SAT 97
[2023-06-25 14:42] VITALS: BP 122/75; PULSE 84; RESP 18; TEMP 97.5
[2023-06-25] MEDS ORDERED: PANT40EC56 PO (15:17)
[2023-06-25] MEDS ORDERED: ACET-9525 PO (15:17)
[2023-06-25] MEDS ORDERED: LOPE2TAB52 PO (15:17)
[2023-06-25] MEDS ORDERED: LACT10CA PO (15:17)
== END 2023-06-25 15:50 | disposition home or self-care (01) ==
LOC: MED 22:53 → MMU 06-23 06:37 → MTU 06-23 16:40
PROVIDERS: ADMIT Internal Medicine; ATTEND Internal Medicine
DX: K52.9 Noninfective gastroenteritis and colitis, unspecified (principal); E87.20 Acidosis, unspecified; I10 Essential (primary) hypertension; E66.01 Morbid (severe) obesity due to excess calories; Z79.899 Other long term (current) drug therapy
CPT/HCPCS: 36415; 80048; 80053; 80076; 81003; 83605; 83735; 85025; 87040; 87045; 87081; 87086; 87177; 87427; 89055; 94760; 96361; 96365; 96375; 96376; 99291; G0378; J2270; J2405; J3490

== ENCOUNTER 2023-07-12 09:36 | Emergency (ER) | payer MEDICARE, OTHER ==
[~2023-07-12] VITALS: Ht 165.1 cm; Wt 156.5 kg
[~2023-07-12 09:36] MED LIST changes: +ACET-9525 PO; +LACT10CA PO; +LOPE2TAB52 PO; +PANT40EC56 PO
[2023-07-12 09:41] VITALS: BP 106/59; PULSE 88; RESP 18; TEMP 97; O2SAT 97
[2023-07-12 09:46] VITALS: TEMP 97.8
[2023-07-12 10:45] LABS: BASOPHILS % (AUTO) 0.2 % (0.0-2.0); EOSINOPHILS # (AUTO) 0.2 K/uL (0-0.4); EOSINOPHILS % (AUTO) 3.9 % (0.0-4.0); HEMATOCRIT 41.5 % (36-48); HEMOGLOBIN 13.9 g/dL (12.0-16.0); LYMPHOCYTES # (AUTO) 1.7 K/uL (2.5-16.5); LYMPHOCYTES % (AUTO) 31.6 % (20.5-51.1); MEAN CORPUSCULAR HEMOGLOBIN 31 pg (27-31); MEAN CORPUSCULAR HGB CONC 34 g/dL (33-37); MEAN CORPUSCULAR VOLUME 90.8 fL (80-94); MONOCYTES # (AUTO) 0.5 K/uL (0.8-1.0); MONOCYTES % (AUTO) 8.6 % (1.7-9.3); NEUTROPHILS % (AUTO) 55.7 % (42.2-75.2); PLATELET COUNT (AUTO) 207 K/uL (140-450); RED BLOOD CELL COUNT(AUTO) 4.58 MIL/uL (4.20-5.40); RED CELL DISTRIBUTION WIDTH 13.3 % (11.6-13.7); WHITE BLOOD COUNT (AUTO) 5.3 K/uL (4.8-10.8)
[2023-07-12 10:57] LABS: ANION GAP 13.9 (8-16); CALCIUM 9.1 mg/dL (8.5-10.1); CARBON DIOXIDE 25.3 mmol/L (21-32); CREATININE 0.8 mg/dL (0.6-1.3); POTASSIUM 4.2 mmol/L (3.5-5.1)
[2023-07-12] MEDS: NACL 0.9% 1,000 ML IV ONE (11:00)
[2023-07-12 11:03] LABS: ALANINE AMINOTRANSFERASE 14 U/L (12-78); ALBUMIN 3.4 g/dL (3.4-5.0); ALKALINE PHOSPHATASE 89 U/L (50-136); ASPARTATE AMINOTRANSFERASE 17 U/L (15-37); BILIRUBIN,DIRECT 0.1 mg/dL (0.0-0.3); LIPASE 24 U/L (16-77); TOTAL BILIRUBIN 0.3 mg/dL (0.0-1.0); TOTAL PROTEIN, SERUM 8.3 g/dL (6.4-8.2)
[2023-07-12] MEDS: ACETAMINOPHEN EXTRA STRENGTH 500 MG TAB PO ONE (11:08)
[2023-07-12] MEDS: METOCLOPRAMIDE 10 MG/2 ML INJ VIAL IVP ONE (11:09)
[2023-07-12] MEDS: diphenhydrAMINE 50 MG/ML VIAL IVP ONE (11:10)
[2023-07-12 11:22] LABS: APPEARANCE,URINE CLEAR (CLEAR); BILIRUBIN,URINE NEGATIVE (NEGATIVE); BLOOD, URINE NEGATIVE (NEGATIVE); COLOR,URINE YELLOW (YELLOW); LEUKOCYTE ESTERASE ,URINE NEGATIVE (NEGATIVE); NITRITE, URINE NEGATIVE (NEGATIVE); PROTEIN,URINE NEGATIVE (NEGATIVE); UGLUCOSE NEGATIVE (NEGATIVE); UROBILINOGEN,URINE 0.2 EU/dL (0.2 - 1)
[2023-07-12] MEDS ORDERED: ONDA-188 SL (13:39)
[2023-07-12 14:00] VITALS: BP 109/41; PULSE 77; RESP 17; O2SAT 100
== END 2023-07-12 14:01 | disposition home or self-care (01) ==
LOC: MED 09:36
DX: R51.9 Headache, unspecified (principal); R11.2 Nausea with vomiting, unspecified; R10.13 Epigastric pain; I10 Essential (primary) hypertension; E78.00 Pure hypercholesterolemia, unspecified; F31.9 Bipolar disorder, unspecified; E78.5 Hyperlipidemia, unspecified; Z79.899 Other long term (current) drug therapy
CPT/HCPCS: 36415; 70450; 80048; 80076; 81003; 83690; 84484; 85025; 93005; 96361; 96374; 96375; 99285; J1200; J2765; J7030

== ENCOUNTER 2023-07-31 04:55 | Emergency (ER) | payer MEDICARE, OTHER ==
[~2023-07-31] VITALS: Ht 165.1 cm; Wt 163.3 kg
[~2023-07-31 04:55] MED LIST changes: +ONDA-188 SL
[2023-07-31 05:02] VITALS: BP 123/76; PULSE 81; RESP 19; TEMP 98; O2SAT 98
[2023-07-31 06:04] LABS: BASOPHILS % (AUTO) 0.4 % (0.0-2.0); EOSINOPHILS # (AUTO) 0.2 K/uL (0-0.4); EOSINOPHILS % (AUTO) 4.4 % (0.0-4.0); HEMATOCRIT 38.8 % (36-48); HEMOGLOBIN 13.2 g/dL (12.0-16.0); LYMPHOCYTES # (AUTO) 1.9 K/uL (2.5-16.5); LYMPHOCYTES % (AUTO) 39.7 % (20.5-51.1); MEAN CORPUSCULAR HEMOGLOBIN 31 pg (27-31); MEAN CORPUSCULAR HGB CONC 34 g/dL (33-37); MEAN CORPUSCULAR VOLUME 90.6 fL (80-94); MONOCYTES # (AUTO) 0.4 K/uL (0.8-1.0); MONOCYTES % (AUTO) 8.5 % (1.7-9.3); NEUTROPHILS # (AUTO) 2.2 K/uL (1.8-7.7); PLATELET COUNT (AUTO) 213 K/uL (140-450); RED BLOOD CELL COUNT(AUTO) 4.28 MIL/uL (4.20-5.40); RED CELL DISTRIBUTION WIDTH 13.6 % (11.6-13.7); WHITE BLOOD COUNT (AUTO) 4.8 K/uL (4.8-10.8)
[2023-07-31 06:15] LABS: CALCIUM 9.7 mg/dL (8.5-10.1); CARBON DIOXIDE 24.9 mmol/L (21-32); CREATININE 0.9 mg/dL (0.6-1.3); POTASSIUM 3.9 mmol/L (3.5-5.1)
[2023-07-31 06:18] LABS: INR 1.05 (0.8-1.2); PARTIAL THROMBOPLASTIN TIME 28.5 secs (22-35.6)
[2023-07-31 06:31] LABS: ALANINE AMINOTRANSFERASE 16 U/L (12-78); ALBUMIN 3.6 g/dL (3.4-5.0); ALKALINE PHOSPHATASE 79 U/L (50-136); ASPARTATE AMINOTRANSFERASE 16 U/L (15-37); BILIRUBIN,DIRECT 0.1 mg/dL (0.0-0.3); TOTAL BILIRUBIN 0.3 mg/dL (0.0-1.0); TOTAL PROTEIN, SERUM 8.2 g/dL (6.4-8.2)
[2023-07-31] MEDS: NACL 0.9% 1,000 ML IV ONE (06:54)
[2023-07-31] MEDS: KETOROLAC 30 MG/ML VIAL IVP ONE (06:56)
[2023-07-31] MEDS ORDERED: RIFA550T PO (08:35)
[2023-07-31 08:50] VITALS: BP 106/59; PULSE 78; RESP 21; O2SAT 99
== END 2023-07-31 08:50 | disposition home or self-care (01) ==
LOC: MED 04:55
DX: K58.0 Irritable bowel syndrome with diarrhea (principal); R07.9 Chest pain, unspecified; I10 Essential (primary) hypertension; Z79.899 Other long term (current) drug therapy
CPT/HCPCS: 36415; 71045; 80048; 80076; 83880; 84484; 85025; 85610; 85730; 93005; 96361; 96374; 99285; J1885; J7030; Q0092

== ENCOUNTER 2023-08-26 22:04 | Emergency (ER) | payer MEDICARE, OTHER ==
[~2023-08-26] VITALS: Ht 167.6 cm; Wt 149.7 kg
[~2023-08-26 22:04] MED LIST changes: +ACET-8905 PO; +ALBU0.0912 INH; +AMLO10TA88 PO; +ATA10 PO; +ATOR20TA40 PO; +AZIT250T3 PO; +CARV12.52 PO; +CYCL-657 PO; +DIVA250E1 PO; +DOCU-299 PO; +FURO-570 PO; +GABA300C55 PO; +GEMF-65 PO; +HYDR-1095 PO; +LAMO25TA PO; +LEVE500T9 PO; +LORA-476 PO; +LUBI24CA PO; +MECL-303 PO; +ONDA8TAB87 PO; +OXYB5TAB44 PO; +POTA10TA71 PO; +PRAZ1CAP5 PO; +PRIM50TA21 PO; +RIFA550T PO; +TAP5 PO; +TOP100 PO; +ZIPR40CA26 PO; +[UNRECOGNIZED DRUG - CODE] PO
[2023-08-26 22:20] VITALS: PULSE 89; RESP 17; TEMP 98; O2SAT 97
[2023-08-27 01:03] VITALS: BP 130/85; PULSE 88; RESP 16; TEMP 98; O2SAT 97
[2023-08-27] MEDS: HYDROcodone/APAP 5/325 MG 1 TAB TAB PO ONE (01:10)
== END 2023-08-27 04:55 | disposition home or self-care (01) ==
LOC: MED 22:04
DX: S76.812A Strain of other specified muscles, fascia and tendons at thigh level, left thigh, initial encounter (principal); M17.12 Unilateral primary osteoarthritis, left knee; I10 Essential (primary) hypertension; Z79.899 Other long term (current) drug therapy; W18.30XA Fall on same level, unspecified, initial encounter; Y93.89 Activity, other specified; Y92.89 Other specified places as the place of occurrence of the external cause; Y99.8 Other external cause status
CPT/HCPCS: 73562; 73700; 99284

== ENCOUNTER 2023-09-03 12:40 | Emergency (ER) | payer MEDICARE, OTHER ==
[~2023-09-03] VITALS: Ht 165.1 cm; Wt 158.8 kg
[2023-09-03 13:12] VITALS: BP 121/76; PULSE 98; RESP 18; TEMP 97.1; O2SAT 98
[2023-09-03] MEDS: KETOROLAC 30 MG/ML VIAL IM ONE (15:01)
[2023-09-03] MEDS ORDERED: LID5T TP (15:27)
[2023-09-03] MEDS ORDERED: DICL100G32 TP (15:27)
== END 2023-09-03 15:50 | disposition home or self-care (01) ==
LOC: MED 12:40
DX: S50.11XA Contusion of right forearm, initial encounter (principal); I10 Essential (primary) hypertension; Z79.899 Other long term (current) drug therapy; W18.30XA Fall on same level, unspecified, initial encounter; Y93.89 Activity, other specified; Y92.89 Other specified places as the place of occurrence of the external cause; Y99.8 Other external cause status
CPT/HCPCS: 73080; 73090; 96372; 99284; J1885

== ENCOUNTER 2023-10-09 10:34 | Emergency (ER) | payer MEDICARE, OTHER ==
[~2023-10-09] VITALS: Ht 165.1 cm; Wt 166.0 kg
[~2023-10-09 10:34] MED LIST changes: +DICL100G32 TP; +LID5T TP
[2023-10-09 10:44] VITALS: BP 123/80; PULSE 87; RESP 18; TEMP 97.6; O2SAT 95
[2023-10-09] MEDS: KETOROLAC 60 MG/2 ML VIAL IM ONE (11:17)
[2023-10-09 11:24] LABS: APPEARANCE,URINE CLEAR (CLEAR); BILIRUBIN,URINE NEGATIVE (NEGATIVE); BLOOD, URINE NEGATIVE (NEGATIVE); COLOR,URINE YELLOW (YELLOW); LEUKOCYTE ESTERASE ,URINE NEGATIVE (NEGATIVE); NITRITE, URINE NEGATIVE (NEGATIVE); PROTEIN,URINE NEGATIVE (NEGATIVE); UGLUCOSE NEGATIVE (NEGATIVE); UROBILINOGEN,URINE 0.2 EU/dL (0.2 - 1)
[2023-10-09] MEDS: MORPHINE SULFATE 4 MG/ML SYR IM ONE (12:19)
[2023-10-09] MEDS ORDERED: LOPE-289 PO (12:21)
[2023-10-09] MEDS ORDERED: CIPR500T4 PO (12:21)
[2023-10-09] MEDS ORDERED: ACET-8905 PO (12:21)
[2023-10-09] MEDS ORDERED: PRED20TA5 PO (12:21)
[2023-10-09 12:37] VITALS: BP 115/74; PULSE 84; RESP 18; O2SAT 95
== END 2023-10-09 12:36 | disposition home or self-care (01) ==
LOC: MED 10:34
DX: R19.7 Diarrhea, unspecified (principal); R10.13 Epigastric pain; M54.50 Low back pain, unspecified; I10 Essential (primary) hypertension; Z79.1 Long term (current) use of non-steroidal anti-inflammatories (NSAID); Z79.899 Other long term (current) drug therapy; Z90.49 Acquired absence of other specified parts of digestive tract
CPT/HCPCS: 81003; 81025; 96372; 99284; J1885; J2270

== ENCOUNTER 2023-10-11 10:04 | Emergency (ER) | payer MEDICARE, OTHER ==
[~2023-10-11] VITALS: Ht 165.1 cm; Wt 163.3 kg
[~2023-10-11 10:04] MED LIST changes: +CIPR500T4 PO; +LOPE-289 PO; +PRED20TA5 PO
[2023-10-11 10:14] VITALS: BP 117/69; PULSE 75; RESP 16; TEMP 97.6; O2SAT 98
[2023-10-11 10:22] VITALS: O2SAT 98
[2023-10-11] MEDS: NACL 0.9% 1,000 ML IV SCH (10:54)
[2023-10-11 10:56] LABS: BASOPHILS % (AUTO) 0.1 % (0.0-2.0); EOSINOPHILS # (AUTO) 0.3 K/uL (0-0.4); EOSINOPHILS % (AUTO) 4.7 % (0.0-4.0); HEMATOCRIT 39.7 % (36-48); HEMOGLOBIN 13.3 g/dL (12.0-16.0); LYMPHOCYTES # (AUTO) 1.8 K/uL (2.5-16.5); LYMPHOCYTES % (AUTO) 31.2 % (20.5-51.1); MEAN CORPUSCULAR HEMOGLOBIN 31 pg (27-31); MEAN CORPUSCULAR HGB CONC 34 g/dL (33-37); MEAN CORPUSCULAR VOLUME 92.1 fL (80-94); MONOCYTES # (AUTO) 0.4 K/uL (0.8-1.0); MONOCYTES % (AUTO) 7.8 % (1.7-9.3); NEUTROPHILS # (AUTO) 3.2 K/uL (1.8-7.7); NEUTROPHILS % (AUTO) 56.2 % (42.2-75.2); PLATELET COUNT (AUTO) 220 K/uL (140-450); RED BLOOD CELL COUNT(AUTO) 4.32 MIL/uL (4.20-5.40); RED CELL DISTRIBUTION WIDTH 14.2 % (11.6-13.7); WHITE BLOOD COUNT (AUTO) 5.7 K/uL (4.8-10.8)
[2023-10-11] MEDS: FAMOTIDINE 20 MG/2 ML VIAL IVP ONE (10:56)
[2023-10-11] MEDS: ONDANSETRON 4 MG/2 ML VIAL IVP ONE (10:56)
[2023-10-11 11:26] LABS: ANION GAP 17.1 (8-16); CALCIUM 9.5 mg/dL (8.5-10.1); CARBON DIOXIDE 25.6 mmol/L (21-32); CREATININE 1.1 mg/dL (0.6-1.3); POTASSIUM 4.7 mmol/L (3.5-5.1)
[2023-10-11 11:30] LABS: ALBUMIN 3.7 g/dL (3.4-5.0); BILIRUBIN,DIRECT 0.1 mg/dL (0.0-0.3); TOTAL BILIRUBIN 0.4 mg/dL (0.0-1.0); TOTAL PROTEIN, SERUM 7.3 g/dL (6.4-8.2)
[2023-10-11] MEDS: MORPHINE SULFATE 4 MG/ML SYR IVP ONE (11:44)
[2023-10-11] MEDS: DICYCLOMINE 20 MG/2 ML VIAL IM ONE (11:44)
[2023-10-11] MEDS: NACL 0.9% 1,000 ML IV ONE (12:07)
[2023-10-11 12:51] LABS: APPEARANCE,URINE CLEAR (CLEAR); BILIRUBIN,URINE NEGATIVE (NEGATIVE); BLOOD, URINE NEGATIVE (NEGATIVE); COLOR,URINE YELLOW (YELLOW); LEUKOCYTE ESTERASE ,URINE NEGATIVE (NEGATIVE); NITRITE, URINE NEGATIVE (NEGATIVE); PROTEIN,URINE NEGATIVE (NEGATIVE); UGLUCOSE NEGATIVE (NEGATIVE); UROBILINOGEN,URINE 0.2 EU/dL (0.2 - 1)
[2023-10-11 13:32] VITALS: BP 140/70; PULSE 82; RESP 18; TEMP 98.3; O2SAT 97
== END 2023-10-11 13:34 | disposition home or self-care (01) ==
LOC: MED 10:04
DX: K58.0 Irritable bowel syndrome with diarrhea (principal); R10.9 Unspecified abdominal pain; Z79.899 Other long term (current) drug therapy
CPT/HCPCS: 36415; 74176; 80048; 80076; 81003; 83690; 85025; 96361; 96372; 96374; 96375; 99285; J0500; J2405; J3490; J2270; J7030

== ENCOUNTER 2023-10-12 08:09 | Emergency (ER) | payer MEDICARE, OTHER ==
[~2023-10-12] VITALS: Ht 165.1 cm; Wt 163.3 kg
[2023-10-12 08:12] VITALS: BP 139/82; PULSE 84; RESP 20; TEMP 97.5; O2SAT 98
[2023-10-12] MEDS: PANTOPRAZOLE 40 MG INJ VIAL IVP ONE (09:42)
[2023-10-12] MEDS: ONDANSETRON 4 MG/2 ML VIAL IVP ONE ×2 (09:43→16:12)
[2023-10-12] MEDS: MORPHINE SULFATE 4 MG/ML SYR IVP ONE (09:43)
[2023-10-12] MEDS: NACL 0.9% 1,000 ML IV ONE (09:44)
[2023-10-12 09:52] LABS: ANION GAP 15.6 (8-16); CARBON DIOXIDE 21.3 mmol/L (21-32); CREATININE 0.9 mg/dL (0.6-1.3); POTASSIUM 3.9 mmol/L (3.5-5.1)
[2023-10-12 10:24] LABS: ALBUMIN 3.4 g/dL (3.4-5.0); BILIRUBIN,DIRECT 0.1 mg/dL (0.0-0.3); TOTAL BILIRUBIN 0.3 mg/dL (0.0-1.0); TOTAL PROTEIN, SERUM 6.6 g/dL (6.4-8.2)
[2023-10-12 10:38] LABS: BASOPHILS % (AUTO) 0.1 % (0.0-2.0); EOSINOPHILS # (AUTO) 0.2 K/uL (0-0.4); EOSINOPHILS % (AUTO) 3.7 % (0.0-4.0); HEMATOCRIT 36.9 % (36-48); HEMOGLOBIN 12.4 g/dL (12.0-16.0); LYMPHOCYTES # (AUTO) 1.4 K/uL (2.5-16.5); LYMPHOCYTES % (AUTO) 26.7 % (20.5-51.1); MEAN CORPUSCULAR HEMOGLOBIN 31 pg (27-31); MEAN CORPUSCULAR HGB CONC 34 g/dL (33-37); MEAN CORPUSCULAR VOLUME 92.3 fL (80-94); MONOCYTES # (AUTO) 0.3 K/uL (0.8-1.0); MONOCYTES % (AUTO) 6.6 % (1.7-9.3); NEUTROPHILS # (AUTO) 3.3 K/uL (1.8-7.7); NEUTROPHILS % (AUTO) 62.9 % (42.2-75.2); PLATELET COUNT (AUTO) 184 K/uL (140-450); RED CELL DISTRIBUTION WIDTH 14.3 % (11.6-13.7); WHITE BLOOD COUNT (AUTO) 5.2 K/uL (4.8-10.8)
[2023-10-12 12:19] LABS: APPEARANCE,URINE CLEAR (CLEAR); BILIRUBIN,URINE NEGATIVE (NEGATIVE); BLOOD, URINE NEGATIVE (NEGATIVE); COLOR,URINE YELLOW (YELLOW); LEUKOCYTE ESTERASE ,URINE NEGATIVE (NEGATIVE); NITRITE, URINE NEGATIVE (NEGATIVE); PH,URINE 6.5 (5.0-9.0); PROTEIN,URINE NEGATIVE (NEGATIVE); UGLUCOSE NEGATIVE (NEGATIVE); UROBILINOGEN,URINE 0.2 EU/dL (0.2 - 1)
[2023-10-12] MEDS: ALUMINUM HYD/MAG/SIMETHICONE 30 ML UDC PO ONE (14:56)
[2023-10-12] MEDS: ACETAMINOPHEN 325 MG TAB PO ONE (15:15)
[2023-10-12 17:59] VITALS: BP 138/86; PULSE 72; RESP 18; TEMP 97.8; O2SAT 100
== END 2023-10-12 17:59 | disposition short-term general hospital (02) ==
LOC: MED 08:09
DX: R10.33 Periumbilical pain (principal); K58.0 Irritable bowel syndrome with diarrhea; I10 Essential (primary) hypertension; Z79.899 Other long term (current) drug therapy
CPT/HCPCS: 36415; 80048; 80076; 81003; 83605; 83690; 85025; 87210; 96361; 96374; 96375; 96376; 99285; C9113; J2270; J2405; J7030

== ENCOUNTER 2023-10-25 06:30 | Emergency (ER) | payer MEDICARE, OTHER ==
[~2023-10-25] VITALS: Ht 165.1 cm; Wt 163.3 kg
[2023-10-25 06:37] VITALS: BP 128/88; PULSE 83; RESP 20; TEMP 98.7; O2SAT 100
[2023-10-25 06:44] VITALS: O2SAT 97
[2023-10-25] MEDS ORDERED: diphenhydrAMINE 50 MG/ML VIAL IVP ONE (06:50)
[2023-10-25] MEDS ORDERED: METOCLOPRAMIDE 10 MG/2 ML INJ VIAL IVP ONE (06:50)
[2023-10-25 07:31] VITALS: O2SAT 97
[2023-10-25] MEDS ORDERED: DICYCLOMINE 20 MG/2 ML VIAL IM ONE (07:59)
[2023-10-25] MEDS: ALUMINUM HYD/MAG/SIMETHICONE 30 ML UDC PO ONE (08:01)
[2023-10-25] MEDS: METOCLOPRAMIDE 10 MG TAB PO ONE (08:01)
[2023-10-25] MEDS: DICYCLOMINE 20 MG/2 ML VIAL IM ONE (08:02)
[2023-10-25 08:20] LABS: BASOPHILS % (AUTO) 0.3 % (0.0-2.0); EOSINOPHILS # (AUTO) 0.3 K/uL (0-0.4); EOSINOPHILS % (AUTO) 5.7 % (0.0-4.0); HEMATOCRIT 39.7 % (36-48); HEMOGLOBIN 13.2 g/dL (12.0-16.0); LYMPHOCYTES # (AUTO) 1.7 K/uL (2.5-16.5); LYMPHOCYTES % (AUTO) 34.7 % (20.5-51.1); MEAN CORPUSCULAR HEMOGLOBIN 31 pg (27-31); MEAN CORPUSCULAR HGB CONC 33 g/dL (33-37); MEAN CORPUSCULAR VOLUME 91.6 fL (80-94); MONOCYTES # (AUTO) 0.5 K/uL (0.8-1.0); NEUTROPHILS # (AUTO) 2.5 K/uL (1.8-7.7); NEUTROPHILS % (AUTO) 50.3 % (42.2-75.2); PLATELET COUNT (AUTO) 194 K/uL (140-450); RED BLOOD CELL COUNT(AUTO) 4.33 MIL/uL (4.20-5.40); RED CELL DISTRIBUTION WIDTH 13.7 % (11.6-13.7)
[2023-10-25] MEDS: NACL 0.9% 1,000 ML IV ONE (08:21)
[2023-10-25 08:46] LABS: ANION GAP 13.3 (8-16); CALCIUM 9.2 mg/dL (8.5-10.1); CARBON DIOXIDE 23.5 mmol/L (21-32); CREATININE 0.9 mg/dL (0.6-1.3); POTASSIUM 3.8 mmol/L (3.5-5.1)
[2023-10-25 08:49] LABS: ALANINE AMINOTRANSFERASE 19 U/L (12-78); ALBUMIN 3.5 g/dL (3.4-5.0); ALKALINE PHOSPHATASE 90 U/L (50-136); ASPARTATE AMINOTRANSFERASE 11 U/L (15-37); BILIRUBIN,DIRECT 0.1 mg/dL (0.0-0.3); LIPASE 29 U/L (16-77); TOTAL BILIRUBIN 0.3 mg/dL (0.0-1.0); TOTAL PROTEIN, SERUM 7.1 g/dL (6.4-8.2)
[2023-10-25 09:07] VITALS: BP 119/66; PULSE 78; RESP 20; TEMP 98.7
[2023-10-25] MEDS ORDERED: DICL100G32 TP (09:19)
[2023-10-25] MEDS ORDERED: LOPERAMIDE 2 MG CAP ONE (09:27)
[2023-10-25 09:31] VITALS: O2SAT 97
[2023-10-25] MEDS: KETOROLAC 30 MG/ML VIAL IVP ONE (09:31)
[2023-10-25] MEDS: LOPERAMIDE 2 MG CAP PO ONE (09:34)
[2023-10-25 10:34] LABS: APPEARANCE,URINE CLEAR (CLEAR); BILIRUBIN,URINE NEGATIVE (NEGATIVE); BLOOD, URINE NEGATIVE (NEGATIVE); COLOR,URINE YELLOW (YELLOW); LEUKOCYTE ESTERASE ,URINE NEGATIVE (NEGATIVE); NITRITE, URINE NEGATIVE (NEGATIVE); PROTEIN,URINE NEGATIVE (NEGATIVE); UGLUCOSE NEGATIVE (NEGATIVE); UROBILINOGEN,URINE 0.2 EU/dL (0.2 - 1)
== END 2023-10-25 09:34 | disposition home or self-care (01) ==
LOC: MED 06:30
DX: R10.9 Unspecified abdominal pain (principal); R53.1 Weakness; R07.89 Other chest pain; G89.29 Other chronic pain; M25.562 Pain in left knee; M25.561 Pain in right knee; K21.9 Gastro-esophageal reflux disease without esophagitis; I10 Essential (primary) hypertension; E78.5 Hyperlipidemia, unspecified; F31.9 Bipolar disorder, unspecified; Z79.1 Long term (current) use of non-steroidal anti-inflammatories (NSAID); Z79.2 Long term (current) use of antibiotics; Z79.899 Other long term (current) drug therapy
CPT/HCPCS: 36415; 71045; 80048; 80076; 81003; 81025; 83690; 84484; 85025; 93005; 96360; 96372; 99285; J0500; J1885; J7030; J8597; Q0163; 96361; 96374

== ENCOUNTER 2023-10-30 12:40 | Emergency (ER) | payer MEDICARE, OTHER ==
[~2023-10-30] VITALS: Ht 165.1 cm; Wt 163.3 kg
[2023-10-30 13:00] VITALS: BP 117/74; PULSE 86; RESP 18; TEMP 98.3; O2SAT 98
[2023-10-30] MEDS: KETOROLAC 30 MG/ML VIAL IM ONE (14:01)
[2023-10-30 14:31] VITALS: BP 104/72; PULSE 80; RESP 18; TEMP 98; O2SAT 98
== END 2023-10-30 14:32 | disposition home or self-care (01) ==
LOC: MED 12:40
DX: M17.0 Bilateral primary osteoarthritis of knee (principal); I10 Essential (primary) hypertension; E78.5 Hyperlipidemia, unspecified; K21.9 Gastro-esophageal reflux disease without esophagitis; K58.9 Irritable bowel syndrome, unspecified; Z79.899 Other long term (current) drug therapy
CPT/HCPCS: 96372; 99283; J1885

== ENCOUNTER 2024-01-16 11:33 | Emergency (ER) | payer MEDICARE, OTHER ==
[~2024-01-16] VITALS: Ht 165.1 cm; Wt 166.0 kg
[2024-01-16 11:51] VITALS: BP 122/77; PULSE 84; RESP 17; TEMP 99.2; O2SAT 96
[2024-01-16 12:40] LABS: BASOPHILS % (AUTO) 0.1 % (0.0-2.0); EOSINOPHILS # (AUTO) 0.3 K/uL (0-0.4); EOSINOPHILS % (AUTO) 6.7 % (0.0-4.0); HEMATOCRIT 39.6 % (36-48); LYMPHOCYTES # (AUTO) 1.8 K/uL (2.5-16.5); LYMPHOCYTES % (AUTO) 38.8 % (20.5-51.1); MEAN CORPUSCULAR HEMOGLOBIN 30 pg (27-31); MEAN CORPUSCULAR HGB CONC 33 g/dL (33-37); MEAN CORPUSCULAR VOLUME 91.3 fL (80-94); MONOCYTES # (AUTO) 0.4 K/uL (0.8-1.0); MONOCYTES % (AUTO) 8.5 % (1.7-9.3); NEUTROPHILS # (AUTO) 2.1 K/uL (1.8-7.7); NEUTROPHILS % (AUTO) 45.9 % (42.2-75.2); PLATELET COUNT (AUTO) 206 K/uL (140-450); RED BLOOD CELL COUNT(AUTO) 4.34 MIL/uL (4.20-5.40); RED CELL DISTRIBUTION WIDTH 13.7 % (11.6-13.7); WHITE BLOOD COUNT (AUTO) 4.6 K/uL (4.8-10.8)
[2024-01-16 13:10] LABS: ANION GAP 18.8 (8-16); CALCIUM 9.7 mg/dL (8.5-10.1); POTASSIUM 3.8 mmol/L (3.5-5.1)
[2024-01-16 13:12] LABS: APPEARANCE,URINE CLEAR (CLEAR); BILIRUBIN,URINE NEGATIVE (NEGATIVE); BLOOD, URINE NEGATIVE (NEGATIVE); COLOR,URINE YELLOW (YELLOW); LEUKOCYTE ESTERASE ,URINE TRACE (NEGATIVE); NITRITE, URINE NEGATIVE (NEGATIVE); PH,URINE 6.5 (5.0-9.0); PROTEIN,URINE NEGATIVE (NEGATIVE); UGLUCOSE NEGATIVE (NEGATIVE); UROBILINOGEN,URINE 0.2 EU/dL (0.2 - 1)
[2024-01-16 13:27] LABS: FLU A ANTIGEN NEGATIVE (NEGATIVE); FLU B ANTIGEN NEGATIVE (NEGATIVE)
== END 2024-01-16 15:08 | disposition home or self-care (01) ==
LOC: MED 11:33
DX: R53.1 Weakness (principal); Z20.822 Contact with and (suspected) exposure to COVID-19; K21.9 Gastro-esophageal reflux disease without esophagitis; I10 Essential (primary) hypertension; E78.5 Hyperlipidemia, unspecified; F31.9 Bipolar disorder, unspecified; Z79.2 Long term (current) use of antibiotics; Z79.899 Other long term (current) drug therapy
CPT/HCPCS: 36415; 80048; 81003; 84443; 85025; 99283

== ENCOUNTER 2024-03-11 20:27 | Inpatient (IN) | payer OTHER ==
[~2024-03-11] VITALS: Ht 167.6 cm; Wt 113.4 kg
[2024-03-11 20:35] VITALS: BP 138/82; PULSE 88; RESP 22; TEMP 97.4; O2SAT 97
[2024-03-11 21:49] LABS: BASOPHILS % (AUTO) 0.1 % (0.0-2.0); EOSINOPHILS # (AUTO) 0.3 K/uL (0-0.4); EOSINOPHILS % (AUTO) 4.4 % (0.0-4.0); HEMATOCRIT 41.4 % (36-48); LYMPHOCYTES % (AUTO) 38.3 % (20.5-51.1); MEAN CORPUSCULAR HEMOGLOBIN 31 pg (27-31); MEAN CORPUSCULAR HGB CONC 34 g/dL (33-37); MEAN CORPUSCULAR VOLUME 90.6 fL (80-94); MONOCYTES # (AUTO) 0.5 K/uL (0.8-1.0); MONOCYTES % (AUTO) 6.4 % (1.7-9.3); NEUTROPHILS % (AUTO) 50.8 % (42.2-75.2); PLATELET COUNT (AUTO) 255 K/uL (140-450); RED BLOOD CELL COUNT(AUTO) 4.57 MIL/uL (4.20-5.40); RED CELL DISTRIBUTION WIDTH 13.8 % (11.6-13.7); WHITE BLOOD COUNT (AUTO) 7.8 K/uL (4.8-10.8)
[2024-03-11 22:10] LABS: ANION GAP 14.8 (8-16); CALCIUM 9.6 mg/dL (8.5-10.1); CHLORIDE 101 mmol/L (98-107); GFR ARICAN-AMERICAN 75 mL/min (>90); GFR NON ARICAN-AMERICAN 62 mL/min (>90); GLUCOSE 98 mg/dL (74-106); POTASSIUM 3.8 mmol/L (3.5-5.1); SODIUM SERUM 139 mmol/L (136-145); UREA NITROGEN, BLOOD 12 mg/dL (7-18)
[2024-03-11 22:21] LABS: ALANINE AMINOTRANSFERASE 33 U/L (12-78); ALKALINE PHOSPHATASE 110 U/L (50-136); ASPARTATE AMINOTRANSFERASE 27 U/L (15-37); TOTAL BILIRUBIN 0.3 mg/dL (0.0-1.0); TOTAL PROTEIN, SERUM 8.1 g/dL (6.4-8.2)
[2024-03-12] VITALS (7 sets, daily range): BP systolic 94–113; BP diastolic 43–79; PULSE 70–94; RESP 17–20; TEMP 97–97.8; O2SAT 95–99
[2024-03-12] MEDS: ONDANSETRON 4 MG/2 ML VIAL IVP ONE (00:24)
[2024-03-12] MEDS: ASPIRIN 325 MG TAB PO ONE (00:28)
[2024-03-12] MEDS: MORPHINE SULFATE 4 MG/ML SYR IVP ONE (00:32)
[2024-03-12] MEDS ORDERED: MAG SULF 2000 MG/WATER PREMIX 50 ML IV PRN (01:05)
[2024-03-12] MEDS ORDERED: MAGNESIUM OXIDE 400 MG TAB PO PRN (01:05)
[2024-03-12] MEDS ORDERED: POTASSIUM CHLORIDE 10 MEQ TABER PO PRN (01:05)
[2024-03-12] MEDS ORDERED: KCL 20 MEQ IN 100 mL PREMIX 200 ML IV PRN (01:05)
[2024-03-12] MEDS: HYDROcodone/APAP 5/325 MG 1 TAB TAB PO PRN (04:02)
[2024-03-12] MEDS: ONDANSETRON 4 MG/2 ML VIAL IVP PRN (06:16)
[2024-03-12] MEDS: MORPHINE SULFATE 4 MG/ML SYR IVP PRN (06:16)
[2024-03-12] MEDS: DOCUSATE SODIUM 100 MG GELCAP PO SCH (10:03)
[2024-03-12] MEDS: KETOROLAC 30 MG/ML VIAL IVP SCH (11:00)
[2024-03-12] MEDS: FUROSEMIDE 40 MG/4 ML VIAL IVP SCH (14:33)
[2024-03-12 14:54] LABS: FREE T4 (FREE THYROXINE) 0.79 ng/dL (0.76-1.46)
[2024-03-12] MEDS ORDERED: LORazepam 1 MG TAB PO PRN (20:55)
[2024-03-13] VITALS (8 sets, daily range): BP systolic 105–137; BP diastolic 50–80; PULSE 72–99; RESP 18–20; TEMP 96.9–97.8; O2SAT 96–100
[2024-03-13] MEDS: ACETAMINOPHEN 325 MG TAB PO PRN (04:02)
[2024-03-13 04:59] LABS: BASOPHILS % (AUTO) 0.2 % (0.0-2.0); EOSINOPHILS # (AUTO) 0.2 K/uL (0-0.4); EOSINOPHILS % (AUTO) 4.2 % (0.0-4.0); HEMATOCRIT 38.8 % (36-48); HEMOGLOBIN 12.8 g/dL (12.0-16.0); LYMPHOCYTES # (AUTO) 2.1 K/uL (2.5-16.5); LYMPHOCYTES % (AUTO) 41.5 % (20.5-51.1); MEAN CORPUSCULAR HEMOGLOBIN 30 pg (27-31); MEAN CORPUSCULAR HGB CONC 33 g/dL (33-37); MEAN CORPUSCULAR VOLUME 90.7 fL (80-94); MONOCYTES # (AUTO) 0.3 K/uL (0.8-1.0); MONOCYTES % (AUTO) 5.8 % (1.7-9.3); NEUTROPHILS # (AUTO) 2.4 K/uL (1.8-7.7); NEUTROPHILS % (AUTO) 48.3 % (42.2-75.2); PLATELET COUNT (AUTO) 215 K/uL (140-450); RED BLOOD CELL COUNT(AUTO) 4.28 MIL/uL (4.20-5.40); RED CELL DISTRIBUTION WIDTH 13.6 % (11.6-13.7); WHITE BLOOD COUNT (AUTO) 5.1 K/uL (4.8-10.8)
[2024-03-13 05:45] LABS: ALBUMIN 3.2 g/dL (3.4-5.0); ANION GAP 13.4 (8-16); CALCIUM 8.7 mg/dL (8.5-10.1); CARBON DIOXIDE 25.4 mmol/L (21-32); CREATININE 0.9 mg/dL (0.6-1.3); POTASSIUM 3.8 mmol/L (3.5-5.1); TOTAL BILIRUBIN 0.3 mg/dL (0.0-1.0); TOTAL PROTEIN, SERUM 6.8 g/dL (6.4-8.2)
[2024-03-13] MEDS: SIMETHICONE 80 MG TAB.CHEW PO PRN (22:50)
[2024-03-14] VITALS (8 sets, daily range): BP systolic 94–128; BP diastolic 61–75; PULSE 66–81; RESP 18–20; TEMP 97.2–98.7; O2SAT 96–100
[2024-03-14 04:53] LABS: BASOPHILS % (AUTO) 0.1 % (0.0-2.0); EOSINOPHILS # (AUTO) 0.2 K/uL (0-0.4); HEMATOCRIT 38.8 % (36-48); HEMOGLOBIN 12.8 g/dL (12.0-16.0); LYMPHOCYTES # (AUTO) 1.9 K/uL (2.5-16.5); LYMPHOCYTES % (AUTO) 39.2 % (20.5-51.1); MEAN CORPUSCULAR HEMOGLOBIN 30 pg (27-31); MEAN CORPUSCULAR HGB CONC 33 g/dL (33-37); MEAN CORPUSCULAR VOLUME 90.3 fL (80-94); MONOCYTES # (AUTO) 0.4 K/uL (0.8-1.0); MONOCYTES % (AUTO) 7.5 % (1.7-9.3); NEUTROPHILS # (AUTO) 2.4 K/uL (1.8-7.7); NEUTROPHILS % (AUTO) 49.2 % (42.2-75.2); PLATELET COUNT (AUTO) 202 K/uL (140-450); RED CELL DISTRIBUTION WIDTH 13.5 % (11.6-13.7); WHITE BLOOD COUNT (AUTO) 4.9 K/uL (4.8-10.8)
[2024-03-14 05:23] LABS: ALBUMIN 3.3 g/dL (3.4-5.0); ANION GAP 11.8 (8-16); CARBON DIOXIDE 28.1 mmol/L (21-32); MAGNESIUM 2.2 mg/dL (1.8-2.4); POTASSIUM 3.9 mmol/L (3.5-5.1); TOTAL BILIRUBIN 0.3 mg/dL (0.0-1.0); TOTAL PROTEIN, SERUM 6.8 g/dL (6.4-8.2)
[2024-03-14] MEDS: LOSARTAN 25 MG TAB PO SCH (08:16)
[2024-03-14] MEDS: carvediloL 6.25 MG TAB PO SCH (08:16)
[2024-03-14] MEDS: FUROSEMIDE 40 MG/4 ML VIAL IVP SCH ×2 (08:17→20:45)
[2024-03-14] MEDS: DICYCLOMINE 10 MG CAP PO SCH (14:10)
[2024-03-15] VITALS (7 sets, daily range): BP systolic 99–133; BP diastolic 50–85; PULSE 64–82; RESP 18–20; TEMP 96.7–97.7; O2SAT 96–100
[2024-03-15 05:21] LABS: BASOPHILS % (AUTO) 0.1 % (0.0-2.0); EOSINOPHILS # (AUTO) 0.2 K/uL (0-0.4); EOSINOPHILS % (AUTO) 3.8 % (0.0-4.0); HEMATOCRIT 38.9 % (36-48); HEMOGLOBIN 13.1 g/dL (12.0-16.0); LYMPHOCYTES # (AUTO) 2.2 K/uL (2.5-16.5); LYMPHOCYTES % (AUTO) 34.8 % (20.5-51.1); MEAN CORPUSCULAR HEMOGLOBIN 30 pg (27-31); MEAN CORPUSCULAR HGB CONC 34 g/dL (33-37); MEAN CORPUSCULAR VOLUME 89.5 fL (80-94); MONOCYTES # (AUTO) 0.5 K/uL (0.8-1.0); MONOCYTES % (AUTO) 8.3 % (1.7-9.3); NEUTROPHILS # (AUTO) 3.4 K/uL (1.8-7.7); PLATELET COUNT (AUTO) 198 K/uL (140-450); RED BLOOD CELL COUNT(AUTO) 4.35 MIL/uL (4.20-5.40); RED CELL DISTRIBUTION WIDTH 13.5 % (11.6-13.7); WHITE BLOOD COUNT (AUTO) 6.4 K/uL (4.8-10.8)
[2024-03-15 07:16] LABS: ANION GAP 11.5 (8-16); CALCIUM 9.3 mg/dL (8.5-10.1); CREATININE 0.9 mg/dL (0.6-1.3); POTASSIUM 3.5 mmol/L (3.5-5.1)
[2024-03-15 07:36] LABS: ALBUMIN 3.5 g/dL (3.4-5.0); TOTAL BILIRUBIN 0.3 mg/dL (0.0-1.0); TOTAL PROTEIN, SERUM 7.2 g/dL (6.4-8.2)
== END 2024-03-15 19:05 | disposition home or self-care (01) | DRG 205 ==
LOC: MED 20:27 → UNDOADMOB 03-12 01:00 → MMU 03-12 01:00 → OBSVTOIN 03-12 01:02 → INTOOBSV 03-13 17:26 → OBSVTOIN 03-13 17:26
PROVIDERS: ADMIT Hospitalist; ATTEND Hospitalist
DX: M94.0 Chondrocostal junction syndrome [Tietze] (principal); I50.43 Acute on chronic combined systolic (congestive) and diastolic (congestive) heart failure; Z68.41 Body mass index [BMI] 40.0-44.9, adult; I11.0 Hypertensive heart disease with heart failure; E66.01 Morbid (severe) obesity due to excess calories; F31.9 Bipolar disorder, unspecified; K21.9 Gastro-esophageal reflux disease without esophagitis; F41.9 Anxiety disorder, unspecified; K58.9 Irritable bowel syndrome, unspecified; E78.00 Pure hypercholesterolemia, unspecified; E78.5 Hyperlipidemia, unspecified; F43.10 Post-traumatic stress disorder, unspecified; Z90.49 Acquired absence of other specified parts of digestive tract; Z90.89 Acquired absence of other organs
CPT/HCPCS: 36415; 71045; 80053; 83735; 83880; 84439; 84443; 84484; 85025; 87081; 93005; 96374; 96375; 99285; G0378; J1644; J1885; J1940; J2270; J2405; Q0092